=== PATIENT | male | born 1955 | race Caucasian/White ===

== ENCOUNTER → 2019-05-26 12:20 | Outpatient (BNVA) | payer MEDICAID, SELFPAY | PROVIDERS: Family Provider General Practice; PCP Family Medicine; Visit Provider Anesthesiology | DX: G89.29 Other chronic pain (principal); M51.37 Other intervertebral disc degeneration, lumbosacral region; M25.561 Pain in right knee; M25.562 Pain in left knee; Z79.891 Long term (current) use of opiate analgesic | CPT/HCPCS: 99214 ==

== ENCOUNTER → 2019-07-18 13:41 | Outpatient (BNVA) | payer MEDICAID, SELFPAY | PROVIDERS: Family Provider General Practice; PCP Family Medicine; Visit Provider Anesthesiology | DX: G89.29 Other chronic pain (principal); M51.37 Other intervertebral disc degeneration, lumbosacral region; M25.561 Pain in right knee; M25.562 Pain in left knee; Z79.891 Long term (current) use of opiate analgesic | CPT/HCPCS: 99214 ==

== ENCOUNTER → 2019-09-15 08:19 | Outpatient (BNVA) | payer MEDICAID, SELFPAY | PROVIDERS: Family Provider General Practice; PCP Family Medicine; Visit Provider Anesthesiology | DX: G89.29 Other chronic pain (principal); M51.37 Other intervertebral disc degeneration, lumbosacral region; M25.561 Pain in right knee; M25.562 Pain in left knee; Z79.891 Long term (current) use of opiate analgesic | CPT/HCPCS: 99214 ==

== ENCOUNTER → 2019-11-14 10:22 | Outpatient (BNVA) | payer MEDICAID, SELFPAY | PROVIDERS: Family Provider General Practice; PCP Family Medicine; Visit Provider Anesthesiology | DX: G89.29 Other chronic pain (principal); M54.42 Lumbago with sciatica, left side; M54.41 Lumbago with sciatica, right side; M51.37 Other intervertebral disc degeneration, lumbosacral region; M25.561 Pain in right knee; M25.562 Pain in left knee; Z79.891 Long term (current) use of opiate analgesic | CPT/HCPCS: 99214 ==

== ENCOUNTER → 2019-12-21 08:34 | Outpatient (BNVA) | payer MEDICAID, SELFPAY | PROVIDERS: Family Provider General Practice; PCP Family Medicine; Visit Provider Anesthesiology | DX: M25.561 Pain in right knee (principal); M25.562 Pain in left knee | CPT/HCPCS: 20610; 77002; 77003; J1030; J3490 ==

== ENCOUNTER → 2020-01-17 09:47 | Outpatient (BNVA) | payer MEDICAID, SELFPAY | PROVIDERS: Family Provider General Practice; PCP Family Medicine; Visit Provider Anesthesiology | DX: G89.29 Other chronic pain (principal); M54.42 Lumbago with sciatica, left side; M54.41 Lumbago with sciatica, right side; M51.37 Other intervertebral disc degeneration, lumbosacral region; M25.561 Pain in right knee; M25.562 Pain in left knee; Z79.891 Long term (current) use of opiate analgesic | CPT/HCPCS: 99214 ==

== ENCOUNTER → 2020-03-12 09:12 | Outpatient (BNVA) | payer MEDICAID, SELFPAY | PROVIDERS: Family Provider General Practice; PCP Family Medicine; Visit Provider Anesthesiology | DX: G89.29 Other chronic pain (principal); M51.37 Other intervertebral disc degeneration, lumbosacral region; M25.561 Pain in right knee; M25.562 Pain in left knee; Z79.891 Long term (current) use of opiate analgesic | CPT/HCPCS: 99214 ==

== ENCOUNTER → 2020-05-14 07:50 | Outpatient (BNVA) | payer MEDICAID, SELFPAY | PROVIDERS: Family Provider General Practice; PCP Family Medicine; Visit Provider Anesthesiology | DX: G89.29 Other chronic pain (principal); M51.37 Other intervertebral disc degeneration, lumbosacral region; M25.561 Pain in right knee; M25.562 Pain in left knee; Z79.891 Long term (current) use of opiate analgesic | CPT/HCPCS: 99214 ==

== ENCOUNTER → 2020-07-09 10:08 | Outpatient (BNVA) | payer MEDICAID, SELFPAY | PROVIDERS: Family Provider General Practice; PCP Family Medicine; Visit Provider Anesthesiology | DX: G89.29 Other chronic pain (principal); M51.37 Other intervertebral disc degeneration, lumbosacral region; M25.561 Pain in right knee; M25.562 Pain in left knee; Z79.891 Long term (current) use of opiate analgesic | CPT/HCPCS: 99214 ==

== ENCOUNTER → 2020-09-10 13:04 | Outpatient (BNVA) | payer MEDICAID, SELFPAY | PROVIDERS: Family Provider General Practice; PCP Family Medicine; Visit Provider Nurse Practitioner | DX: G89.29 Other chronic pain (principal); M51.37 Other intervertebral disc degeneration, lumbosacral region; M25.561 Pain in right knee; M25.562 Pain in left knee; Z79.891 Long term (current) use of opiate analgesic | CPT/HCPCS: 99213; 99214 ==

== ENCOUNTER → 2020-11-08 09:40 | Outpatient (BNVA) | payer MEDICAID, SELFPAY | PROVIDERS: Family Provider General Practice; PCP Family Medicine; Visit Provider Nurse Practitioner | DX: G89.29 Other chronic pain (principal); M51.37 Other intervertebral disc degeneration, lumbosacral region; M25.561 Pain in right knee; M25.562 Pain in left knee; Z79.891 Long term (current) use of opiate analgesic; Z87.891 Personal history of nicotine dependence | CPT/HCPCS: 99213 ==

== ENCOUNTER → 2021-01-02 14:16 | Outpatient (BNVA) | payer MEDICAID, SELFPAY | PROVIDERS: Family Provider General Practice; PCP Family Medicine; Visit Provider Anesthesiology | DX: G89.29 Other chronic pain (principal); M51.37 Other intervertebral disc degeneration, lumbosacral region; M25.561 Pain in right knee; M25.562 Pain in left knee; Z79.891 Long term (current) use of opiate analgesic | CPT/HCPCS: 99214 ==

== ENCOUNTER → 2021-03-05 08:32 | Outpatient (BNVA) | payer MEDICAID, SELFPAY | PROVIDERS: Family Provider General Practice; PCP Family Medicine; Visit Provider Anesthesiology | DX: G89.29 Other chronic pain (principal); M51.37 Other intervertebral disc degeneration, lumbosacral region; M25.561 Pain in right knee; M25.562 Pain in left knee; Z79.891 Long term (current) use of opiate analgesic | CPT/HCPCS: 99214 ==

== ENCOUNTER → 2021-05-06 08:01 | Outpatient (BNVA) | payer MEDICAID, SELFPAY | PROVIDERS: Family Provider General Practice; PCP Family Medicine; Visit Provider Anesthesiology | DX: G89.29 Other chronic pain (principal); M51.37 Other intervertebral disc degeneration, lumbosacral region; M25.561 Pain in right knee; M25.562 Pain in left knee; Z79.891 Long term (current) use of opiate analgesic; Z87.891 Personal history of nicotine dependence | CPT/HCPCS: 99214 ==

== ENCOUNTER 2024-08-13 10:14 | Emergency (ER) | payer MEDICAID, MEDICARE, SELFPAY ==
--- NOTE | 2024-08-13 10:20 | XRR_ITS ---
PROCEDURE INFORMATION: Exam: XR Right Knee Exam date and time: 08/13/2024 10:33 AM Age: 69 years old Clinical indication: Patient reports having lower extremity pain that is chronic but today pain increased along with swelling to right knee. Patient is tachycardic at this time. ; Additional info: Right knee pain TECHNIQUE: Imaging protocol: Radiologic exam of the right knee. Views: 3 views. Total images: 3 COMPARISON: No relevant prior studies available. FINDINGS: Bones/joints: Large knee joint effusion. Tricompartmental degenerative changes are present. Sclerotically demarcated lucency of approximately 3.1 x 1.9 cm in the lateral tibial metaphysis, associated with moderate degenerative changes in the proximal tibiofibular articulation. Soft tissues: No acute soft tissue abnormality identified. XR/XR knee RT 3V* [id number] IMPRESSION: 1. Moderate tricompartmental degenerative changes with large knee joint effusion. 2. Sclerotically demarcated 3 x 1.9 cm lucency in the lateral tibial metaphysis adjacent to the proximal tibial-fibular articulation . This is favored benign, and may represent a large degenerative cyst, but further evaluation is recommended. Recommend nonemergent knee MRI
[2024-08-13 10:25] VITALS: BP 164/125; PULSE 141; O2SAT 95; BMI 34.4
--- NOTE | 2024-08-13 10:29 | ECG_ITS ---
[facility] Test Date: 2024-08-13 Pat Name: Saman Lema Department: Room: Gender: Male Survey And Mapping Technician: : 1955 Requested By: Lindsey Augustine Order Number: [id number] Reading MD: LAMBERT SAMUELS Measurements Intervals [place] Rate: 139 P: -9 SD: 109 QRS: 22 QRSD: 98 T: 55 QT: 334 QTc: 508 Interpretive Statements SINUS TACHYCARDIA WITH SHORT SD INTERVAL ABNORMAL RHYTHM ECG No previous ECG available for comparison Electronically Signed On 08-13-2024 21:41:38 CDT by LAMBERT SAMUELS [email or web address]
--- NOTE | 2024-08-13 10:35 | W.ED.EXTPRO ---
HPI - Extremity Problem General: Chief complaint: Extremity Injury, Lower Stated complaint: right knee pain Time Seen by Provider: 08/13/24 10:18 Source: patient Mode of arrival: ambulatory Limitations: no limitations History of Present Illness: 69-year-old male with a history of chronic knee pain states he been having some worsening knee pain on the right side with some slight swelling for the last 2 days. Patient is quite anxious here he denies any fever denies any new injury. Associated symptoms: Deny chest pain, fever(s) or rash Related Data Home Medications ?Medication ?Instructions ?Recorded ?Confirmed albuterol sulfate 90 mcg/actuation 2 puff inhalation Q4H PRN coughing 08/13/24 08/13/24 aerosol inhaler and wheezing cyclobenzaprine 10 mg tablet 30 mg PO TID 08/13/24 08/13/24 furosemide 80 mg tablet 80 mg PO DAILY 08/13/24 08/13/24 oxycodone 20 mg tablet 20 mg PO TID 08/13/24 08/13/24 Allergies Allergy/AdvReac Type Severity Reaction Status Date / Time naproxen AdvReac GI UPSET Verified 05/06/21 08:03 oxymorphone (From Opana) AdvReac SEIZURE Verified 05/06/21 08:03 pregabalin (From Lyrica) AdvReac SWELLING Verified 05/06/21 08:03 IN BILAT LEGS/DIZZINESS tramadol AdvReac HEADACHE Verified 05/06/21 08:03 Review of Systems Const: Denies: fever(s), chills, body aches or change in appetite ENMT: Denies: throat pain or dental pain Card: Denies: chest pain Resp: Denies: dyspnea GI: Denies: abdominal pain, nausea, vomiting or diarrhea Musc: Reports: extremity pain; Denies: neck pain or back pain Skin/Breast: Denies: rash Neuro: Denies: headache(s) PFSH ED PFSH: Medical History (Updated 08/13/24 @ 13:25 by Lindsey Augustine MD) Encounter for long-term opiate analgesic use Chronic low back pain DDD (degenerative disc disease), lumbosacral Bilateral knee pain Opioid contract exists Surgical History History of mandibular surgery History of right hip replacement Social History Second hand smoke exposure: No Alcohol intake: never Substance/Drug Use: never Physical Exam Const: COMMON NORMALS: no acute distress, patient oriented x3 and healthy appearing HENMT: COMMON NORMALS: normocephalic and atraumatic HEAD & SCALP: normocephalic and atraumatic Eye: COMMON NORMALS: conjunctivae normal CONJUNCTIVA: Yes conjunctivae normal Neck/C-Spine: COMMON NORMALS: full ROM and supple Chest: COMMONS NORMALS: normal inspection of the chest Resp: COMMON NORMALS: normal respiratory effort Cardio: COMMON NORMALS: regular rhythm and No murmurs present (Cardio) RATE: tachycardic RHYTHM: regular rhythm Extremity: NARRATIVE EXTREMITY EXAM: Tenderness noted to right knee no obvious deformity no warmth to touch distal pulses intact Neuro: COMMON NORMALS: patient oriented x3, moves all extremities and no focal motor deficits Psych: COMMON NORMALS: mental status grossly normal, Normal thought process present and cooperative THOUGHT PROCESS: Normal thought process present Skin: COMMON NORMALS: no rashes or lesions noted and no wounds GENERAL SKIN EXAM: no rashes or lesions noted Course Vital Signs: Vital signs: Vital Signs Pulse Rate 88 08/13/24 13:31 Blood Pressure 156/98 08/13/24 13:31 Pulse Oximetry 98 08/13/24 13:31 Oxygen Delivery Me thod Room Air 08/13/24 10:25 MDM - Extremity (Nontraumatic) Medical Decision Making Patient presents here with right knee pain is chronic in nature no signs of septic joint does have a Sheppard's cyst no DVT pains improved he was tachycardic here likely due to some anxiety and pain his heart rate improved greatly he did have a positive D-dimer CTA showed no signs of PE stable for discharge follow-up with PCP return if worsening Medical Records I reviewed the patient's medical records. Lab Data I reviewed the patient's lab results. 08/13/24 10:32 08/13/24 10:32 Radiology Impressions Knee X-Ray 08/13/24 10:20 IMPRESSION: 1. Moderate tricompartmental degenerative changes with large knee joint effusion. 2. Sclerotically demarcated 3 x 1.9 cm lucency in the lateral tibial metaphysis adjacent to the proximal tibial-fibular articulation . This is favored benign, and may represent a large degenerative cyst, but further evaluation is recommended. Recommend nonemergent knee MRI Venous Duplex 08/13/24 10:43 IMPRESSION: No DVT identified in the right lower extremity. Chest CTA 08/13/24 11:14 IMPRESSION: 1. Main pulmonary artery enlargement, a finding which may be associated with pulmonary artery hypertension. 2. No definite pulmonary embolus is identified through the proximal segmental arteries. Due to limitations, emboli beyond this level cannot be excluded. 3. Suspected extrahepatic biliary ductal dilatation, consider further assessment by ultrasound. 4. Advanced degenerative change in the glenohumeral joint with prominent cortical thickening within the left scapula of undetermined etiology. gallbladder ultrasound. 5. Cardiomegaly. 6. Dilated thoracic aorta.Recommend clinical assessment and follow-up. Laboratory Results WBC 10.81 10^3/uL (3.29-11.43) 08/13/24 10:32 RBC 4.70 10^6/uL (3.85-5.65) 08/13/24 10:32 Hgb 13.60 g/dL (11.27-16.99) 08/13/24 10:32 Hct 41.8 % (37-53) 08/13/24 10:32 MCV 88.9 fl (82-101) 08/13/24 10:32 MCH 28.9 pg (27-33) 08/13/24 10:32 MCHC 32.5 g/dL (30-55) 08/13/24 10:32 RDW 13.8 % (12.1-15.1) 08/13/24 10:32 Plt Count 226 10^3/cmm (157-399) 08/13/24 10:32 MPV 9.5 fL (7.4-10.4) 08/13/24 10:32 Neut % (Auto) 83.4 % 08/13/24 10:32 Lymph % (Auto) 5.3 % 08/13/24 10:32 [place] % (Auto) 10.5 % 08/13/24 10:32 Eos % (Auto) 0.1 % 08/13/24 10:32 Baso % (Auto) 0.3 % 08/13/24 10:32 Neut # (Auto) 9.02 10^3/uL (1.8-7.7) H 08/13/24 10:32 Lymph # (Auto) 0.6 10^3/uL (0.8-4.8) L 08/13/24 10:32 [place] # (Auto) 1.1 10^3/uL (0.2-0.9) H 08/13/24 10:32 Eos # (Auto) 0.0 10^3/uL (0.0-0.8) 08/13/24 10:32 Baso # (Auto) 0.0 10^3/uL (0.0-0.1) 08/13/24 10:32 Nucleated RBC % (auto) 0 % 08/13/24 10:32 Nucleated RBCs # 0.0 /100WBC 08/13/24 10:32 D-Dimer 1.12 ug/mLFEU (0-0.59) H 08/13/24 10:30 Sodium 131 mmol/L (136-145) L 08/13/24 10:32 Potassium 3.9 mmol/L (3.5-5.1) 08/13/24 10:32 Chloride 94 mmol/L (98-107) L 08/13/24 10:32 Carbon Dioxide 25 mmol/L (22-29) 08/13/24 10:32 Anion Gap 15.9 (5-19) 08/13/24 10:32 BUN 14 mg/dL (8-23) 08/13/24 10:32 Creatinine 0.8 mg/dL (0.7-1.2) 08/13/24 10:32 GFR Calculation 96.4 mL/min (90-130) 08/13/24 10:32 Glucose 112 mg/dL (65-115) 08/13/24 10:32 Calculated Osmolality 273 mOsm/kg (285-295) L 08/13/24 10:32 Calcium 9.0 mg/dL (8.5-10.5) 08/13/24 10:32 Total Bilirubin 1.4 mg/dL (0.15-1.2) H 08/13/24 10:32 AST 18 U/L (0-40) 08/13/24 10:32 ALT 13 U/L (0-41) 08/13/24 10:32 Alkaline Phosphatase 58 U/L (40-130) 08/13/24 10:32 Total Protein 8.3 g/dL (6.6-8.7) 08/13/24 10:32 Albumin 4.2 g/dL (3.5-5.2) 08/13/24 10:32 Globulin 4.1 g/dL (1.3-4.6) 08/13/24 10:32 All radiology interpretation(s) finalized by discharge EKG Data EKG 1: I personally reviewed and interpreted this EKG as follows: EKG interpretation date: 08/13/24 EKG interpretation time: 10:28 Interpretation: sinus tach hr [address] elevation qrs 98 qtc 415 Discharge Plan Discharge Patient Disposition: Home Clinical Impression: Knee pain, right, Synovial cyst of popliteal space [Sheppard], right knee Condition: Stable Prescriptions: No Action cyclobenzaprine 10 mg tablet 30 mg PO TID furosemide 80 mg tablet 80 mg PO DAILY albuterol sulfate 90 mcg/actuation HFA aerosol inhaler 2 puff INHALATION Q4H PRN (Reason: coughing and wheezing ) oxycodone 20 mg tablet 20 mg PO TID Discharge Orders: Discharge ED (Routine); Ordered 08/13/24 Ordered By: Lindsey Augustine Referrals: Jarad Knight MD [Primary Care Provider] - Avtar Lee MD [Family Provider] - Discharge Diet: Advance as tolerated Discharge Activity: Resume usual activity Patient Instructions: Knee Pain (ED) Print Language: Maltese Coding Level of Care Code ED 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
[2024-08-13 10:37] LABS: Basophils % 0.3 %; Eosinophils % 0.1 %; Hematocrit 41.8 % (37-53); Lymphocytes # 0.6 10^3/uL (0.8-4.8); Lymphocytes % 5.3 %; Mean Corpuscular HGB Conc 32.5 g/dL (30-55); Mean Corpuscular Hemoglobin 28.9 pg (27-33); Mean Corpuscular Volume 88.9 fl (82-101); Mean Platelet Volume 9.5 fL (7.4-10.4); Monocytes # 1.1 10^3/uL (0.2-0.9); Monocytes % 10.5 %; Neutrophils # 9.02 10^3/uL (1.8-7.7); Neutrophils % 83.4 %; Nucleated Red Blood Cells % 0 %; Platelet Count 226 10^3/cmm (157-399); Red Cell Distribution Width 13.8 % (12.1-15.1); White Blood Count 10.81 10^3/uL (3.29-11.43)
[2024-08-13] MEDS: LORazepam 2 mg/mL INJ 1 mL 1 MG IVP (10:40)
[2024-08-13] MEDS: morphine 4 mg/mL SDV 1 mL IM (10:40)
--- NOTE | 2024-08-13 10:43 | USR_ITS ---
PROCEDURE INFORMATION: Exam: US Duplex Right Lower Extremity Veins, Limited Exam date and time: 08/13/2024 11:05 AM Age: 69 years old Clinical indication: Pain; Leg, lower; Right; Additional info: Leg pain TECHNIQUE: Imaging protocol: Real-time duplex ultrasound of the right extremity with 2-D iverson scale, color Doppler flow and spectral waveform analysis including responses to compression and other maneuvers (when performed) with image documentation. Limited exam was focused on the right lower extremity veins. Total images: 2647 COMPARISON: CR (LOW EXM, ) 08/13/2024 10:33 AM FINDINGS: Right deep veins: Unremarkable. The common femoral, femoral, proximal profunda femoral and popliteal veins are patent without thrombus. Normal Doppler waveforms. Normal compressibility and/or augmentation response. Superficial veins: Greater saphenous vein at the saphenofemoral junction is patent without thrombus. Soft tissues: A 2.5 x 2.2 cm fluid collection is present in the right popliteal fossa favored to represent a Sheppard's cyst, this may contain a small amount of hemorrhage or debris.. US/[place] [id number] IMPRESSION: No DVT identified in the right lower extremity.
[2024-08-13 10:56] LABS: Alanine Aminotransferase 13 U/L (0-41); Albumin Level 4.2 g/dL (3.5-5.2); Alkaline Phosphatase 58 U/L (40-130); Anion Gap 15.9 (5-19); Aspartate Amino Transferase 18 U/L (0-40); Blood Urea Nitrogen 14 mg/dL (8-23); Carbon Dioxide 25 mmol/L (22-29); Chloride 94 mmol/L (98-107); Creatinine Clr Calc Pharmacy 100.8515; Globulin 4.1 g/dL (1.3-4.6); Glomerular Filtration Rate 96.4 mL/min (90-130); Glucose 112 mg/dL (65-115); Osmolality Calculated 273 mOsm/kg (285-295); Potassium 3.9 mmol/L (3.5-5.1); Sodium 131 mmol/L (136-145); Total Bilirubin 1.4 mg/dL (0.15-1.2); Total Protein 8.3 g/dL (6.6-8.7)
[2024-08-13] MEDS: labetalol 5 mg/mL SDV 20mL 10 MG IVP (10:56)
[2024-08-13 11:13] LABS: D Dimer 1.12 ug/mLFEU (0-0.59)
--- NOTE | 2024-08-13 11:14 | CTR_ITS ---
PROCEDURE INFORMATION: Exam: CTA Chest With Contrast Exam date and time: 08/13/2024 11:56 AM Age: 69 years old Clinical indication: Shortness of breath; Additional info: SOB TECHNIQUE: Imaging protocol: Computed tomographic angiography of the chest with contrast. Exam focused on the arteries. 3D rendering (Not supervised by radiologist): MIP and/or 3D reconstructed images were created by the technologist. Total images: 1017 Radiation optimization: All CT scans at this facility use at least one of these dose optimization techniques: automated exposure control; mA and/or kV adjustment per patient size (includes targeted exams where dose is matched to clinical indication); or iterative reconstruction. Contrast material: OMNIPAQUE 350; Contrast volume: 100 ml; Contrast route: INTRAVENOUS (IV); COMPARISON: No relevant prior studies available. RADIATION DOSE METRICS: Total DLP (mGy-cm): 563.09 FINDINGS: Limitations: Secondary to contrast bolus timing, diminished opacification of the more peripheral pulmonary arteries limits assessment for emboli. Motion artifact . Pulmonary arteries: No definite pulmonary embolus is identified through the proximal segmental arteries. The main pulmonary artery is enlarged, measuring 42 mm. Aorta: The ascending thoracic aorta is dilated at 4.4 cm and the descending aorta at 3.1 cm diameter. Secondary to contrast bolus timing, aortic opacification is limited. Lungs: Bilateral predominantly basilar and lower lobe densities suggesting atelectasis. No focal consolidation identified to suggest pneumonia. Narrowing and AP diameter of the mainstem bronchi which may reflect respiratory variation (given definite motion artifact) although bronchomalacia not excluded. . Pleural spaces: No pleural effusion. Heart: Heart is mildly enlarged, no pericardial effusion. Aortic valve calcification is present, which may be associated with aortic stenosis. Coronary arteries: Coronary artery atherosclerotic calcification consistent with coronary atherosclerosis. Lymph nodes: Multiple subcentimeter mediastinal and hilar nodes are present but no pathologically enlarged nodes are identified by CT size criteria. Gallbladder and biliary ducts: Imaged portions of the upper abdomen demonstrate a dilated extrahepatic bile duct of 1.5 cm. Possible cholelithiasis, this region not imaged in its entirety. Bones/joints: There is also a prominent cortical thickening of the upper scapula. Skeletal windows demonstrate advanced degenerative change within the left shoulder Soft tissues: No soft tissue fluid collection identified.. CT/CT angio chest PE protcl [id number] IMPRESSION: 1. Main pulmonary artery enlargement, a finding which may be associated with pulmonary artery hypertension. 2. No definite pulmonary embolus is identified through the proximal segmental arteries. Due to limitations, emboli beyond this level cannot be excluded. 3. Suspected extrahepatic biliary ductal dilatation, consider further assessment by ultrasound. 4. Advanced degenerative change in the glenohumeral joint with prominent cortical thickening within the left scapula of undetermined etiology. gallbladder ultrasound. 5. Cardiomegaly. 6. Dilated thoracic aorta.Recommend clinical assessment and follow-up.
[2024-08-13] MEDS: iohexol 350 mg/mL 500 mL Btl (per mL) IV (11:59)
[2024-08-13 13:31] VITALS: BP 156/98; PULSE 88; O2SAT 98
== END 2024-08-13 13:32 | disposition home or self-care (01) ==
PROVIDERS: Emergency Provider Emergency Medicine; Family Provider General Practice; PCP Family Medicine
DX: M25.561 Pain in right knee (principal); M71.21 Synovial cyst of popliteal space [Baker], right knee
CPT/HCPCS: 71275; 73562; 80053; 85025; 85378; 93005; 93971; 96374; 96375; 99285; J2060; J2270; J3490